=== PATIENT | male | born 1940 | race Two or more races ===

== ENCOUNTER 2019-04-25 11:28 | Emergency (ER) | payer MEDICARE, OTHER ==
[2019-04-25] VITALS (8 sets, daily range): BP systolic 140–180; BP diastolic 72–115
[~2019-04-25] VITALS: Ht 172.7 cm; Wt 93.4 kg
--- NOTE | 2019-04-25 11:53 | NUR ---
ED Nurse Note:pt. 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 is ambulatory with leg prostesis and cane, A/Ox4, VSS, placed on cardia monitor
[2019-04-25] MEDS ORDERED: Vancomycin 1.5 GM in NS 275 ML IV ONE (12:15)
[2019-04-25] MEDS ORDERED: METFORMIN HCL500 M1 ORAL (12:27)
[2019-04-25] MEDS ORDERED: NOVOLOG100 UNIT/4 SQ (12:31)
[2019-04-25] MEDS ORDERED: NIFEDIPINE ER30 M2 ORAL (12:31)
[2019-04-25] MEDS ORDERED: ASPIR 8181 MG ORAL (12:31)
[2019-04-25] MEDS ORDERED: SIMVASTATIN20 MG ORAL (12:31)
[2019-04-25] MEDS ORDERED: LANTUS SOL100 UNIT/1 SUBQ (12:31)
[2019-04-25] MEDS ORDERED: LOSARTAN POTASS50 MG ORAL (12:31)
[2019-04-25] MEDS ORDERED: JANUVIA25 MG ORAL (12:31)
--- NOTE | 2019-04-25 12:37 | Emergency Room Report ---
History of Present Illness General Chief Complaint: Skin Rash/Abscess Source: Patient, Family Member Present Illness HPI 78-year-old male with a history of insulin-dependent diabetes who presents with left foot distal toe infection over the last 6 months. Patient was seen by podiatry 2 months ago and was advised to be seen in emergency room and admitted for IV antibiotics. Patient stated he did not want to come in. He states he has been taking his pain medication but now he is unable to tolerate the pain in his left distal foot. He notes color changes to second and fifth toe. Allergies: Coded Allergies: No Known Allergies (Unverified , 04/25/19) Patient History Past Medical History: DM Nursing Documentation-PMH Past Medical History: No History, Except For Hx Cardiac Problems: No - BKA on RLE Hx Hypertension: Yes Hx Pacemaker: No Hx Asthma: No Hx COPD: No Hx Diabetes: Yes Hx Cancer: No Hx Gastrointestinal Problems: No Hx Dialysis: No History Of Psychiatric Problem: No Hx Neurological Problems: No Hx Cerebrovascular Accident: No Hx Seizures: No Review of Systems Constitutional: Denies: chills, fever Respiratory: Denies: cough, shortness of breath Cardiovascular: Denies: chest pain, palpitations Gastrointestinal: Denies: diarrhea, vomiting Genitourinary: Denies: hematuria, pain Musculoskeletal: Reports: joint pain, joint swelling Skin: Reports: change in color; Denies: rash, lesions Neurological: Denies: headache, dizziness Physical Exam Vital Signs Date Time Temp Pulse Resp B/P (MAP) Pulse Ox O2 Delivery O2 Flow Rate FiO2 04/25/19 11:33 98.1 86 16 138/78 (98) 96 Room Air Sp02 EP Interpretation: reviewed General Appearance: well appearing, no apparent distress, non-toxic Head: normocephalic, atraumatic Eyes: bilateral eye normal inspection ENT: hearing grossly normal, EOM grossly intact, moist mucus membranes Neck: supple Respiratory: lungs clear, normal breath sounds, no respiratory distress, speaking full sentences Cardiovascular #1: regular rate, rhythm, normal capillary refill Cardiovascular #2: 2+ radial (R), 2+ radial (L) Gastrointestinal: soft, non-distended Rectal: deferred Musculoskeletal: moves extm spontaneously, no lower extremity edema Neurologic: grossly normal Psychiatric: mood/affect normal Skin: warm/dry, normal turgor, other - Second digit of left foot necrotic, dry , no drainage. Third digit of left foot erythematous, mildly edematous. Fourth digit stump amputated with yellow mild drainage, fifth phalange/distal digit erythematous edematous tender to palpation discoloration distally, erythema to distal lateral left foot moderate tenderness to palpation on distal metatarsals Medical Decision Making Diagnostic Impression: Primary Impression: Gangrene Additional Impressions: Cellulitis, toe Cellulitis of foot ER Course 70-year-old male history of diabetes who presents to emergency room for gangrenous toes on left foot and erythematous tender to palpation distal left foot. Differential includes dry gangrene, wet gangrene, osteomyelitis, cellulitis, wound infection, fracture Patient will likely need to be admitted for gangrenous. Ordered sepsis profile and covered with broad-spectrum antibiotics. 14:30 -discussed case with -patient accepted for transfer for foot cellulitis, and toe gangrene. Laboratory Tests Test 04/25/19 12:28 04/25/19 14:25 White Blood Count 10.9 K/UL (4.8-10.8) H Red Blood Count 4.22 M/UL (4.70-6.10) L Hemoglobin 11.6 G/DL (14.2-18.0) L Hematocrit 36.1 % (42.0-52.0) L Mean Corpuscular Volume 85 FL (80-99) Mean Corpuscular Hemoglobin 27.4 PG (27.0-31.0) Mean Corpuscular Hemoglobin Concent 32.1 G/DL (32.0-36.0) Red Cell Distribution Width 12.4 % (11.6-14.8) Platelet Count 430 K/UL (150-450) Mean Platelet Volume 5.8 FL (6.5-10.1) L Neutrophils (%) (Auto) 59.1 % (45.0-75.0) Lymphocytes (%) (Auto) 29.3 % (20.0-45.0) Monocytes (%) (Auto) 8.5 % (1.0-10.0) Eosinophils (%) (Auto) 2.5 % (0.0-3.0) Basophils (%) (Auto) 0.6 % (0.0-2.0) Sodium Level 136 MMOL/L (136-145) Potassium Level 3.8 MMOL/L (3.5-5.1) Chloride Level 102 MMOL/L (98-107) Carbon Dioxide Level 25 MMOL/L (21-32) Anion Gap 9 mmol/L (5-15) Blood Urea Nitrogen 23 mg/dL (7-18) H Creatinine 1.4 MG/DL (0.55-1.30) H Estimate Glomerular Filtration Rate mL/min (>60) Glucose Level 209 MG/DL (74-106) H Lactic Acid Level 1.30 mmol/L (0.4-2.0) Calcium Level 8.4 MG/DL (8.5-10.1) L Total Bilirubin 0.3 MG/DL (0.2-1.0) Aspartate Amino Transferase (AST) 26 U/L (15-37) Alanine Aminotransferase (ALT) 28 U/L (12-78) Alkaline Phosphatase 106 U/L (46-116) Total Creatine Kinase 49 U/L (26-308) Creatine Kinase MB < 0.5 NG/ML (0.0-3.6) Creatine Kinase MB Relative Index 1.0 Troponin I 0.000 ng/mL (0.000-0.056) Total Protein 7.4 G/DL (6.4-8.2) Albumin 2.7 G/DL (3.4-5.0) L Globulin 4.7 g/dL Albumin/Globulin Ratio 0.6 (1.0-2.7) L Urine Color Pending Urine Appearance Pending Urine pH Pending Urine Specific Damar Pending Urine Protein Pending Urine Glucose (UA) Pending Urine Ketones Pending Urine Blood Pending Urine Nitrite Pending Urine Bilirubin Pending Urine Urobilinogen Pending Urine Leukocyte Esterase Pending Lab Results Impression Elevated WBC, mild elevated BUN/creatinine, mild elevated glucose. Negative troponin, lactic acid 1.30 Last Vital Signs Date Time Temp Pulse Resp B/P (MAP) Pulse Ox O2 Delivery O2 Flow Rate FiO2 04/25/19 11:55 98.1 82 16 142/82 96 Room Air Disposition: XFER S[facility]M HOSP Condition: Serious Referrals: NON PHYSICIAN (PCP) Dez Rosenthal M.D. Apr 25, 2019 12:37
[2019-04-25 13:05] LABS: BASOPHILS % (AUTO) 0.6 % (0.0-2.0); EOSINOPHILS % (AUTO) 2.5 % (0.0-3.0); HEMATOCRIT 36.1 % (42.0-52.0); HEMOGLOBIN 11.6 G/DL (14.2-18.0); LYMPHOCYTES % (AUTO) 29.3 % (20.0-45.0); MEAN CORPUSCULAR VOLUME 85 FL (80-99); MONOCYTES % (AUTO) 8.5 % (1.0-10.0); NEUTROPHILS % (AUTO) 59.1 % (45.0-75.0); PLATELET COUNT 430 K/UL (150-450); RED BLOOD COUNT 4.22 M/UL (4.70-6.10); RED CELL DISTRIBUTION WIDTH 12.4 % (11.6-14.8); WHITE BLOOD COUNT 10.9 K/UL (4.8-10.8)
--- NOTE | 2019-04-25 13:10 | NUR ---
ED Nurse Note: xray at bedside
[2019-04-25 13:11] LABS: ANION GAP 9 mmol/L (5-15); BLOOD UREA NITROGEN 23 mg/dL (7-18); CALCIUM 8.4 MG/DL (8.5-10.1); CARBON DIOXIDE 25 MMOL/L (21-32); CHLORIDE 102 MMOL/L (98-107); CREATININE 1.4 MG/DL (0.55-1.30); POTASSIUM 3.8 MMOL/L (3.5-5.1); SODIUM 136 MMOL/L (136-145)
[2019-04-25 13:25] LABS: ALANINE AMINOTRANSFERASE 28 U/L (12-78); ALBUMIN 2.7 G/DL (3.4-5.0); ALBUMIN/GLOBULIN RATIO 0.6 (1.0-2.7); ALKALINE PHOSPHATASE 106 U/L (46-116); ASPARTATE AMINO TRANSFERASE 26 U/L (15-37); BILIRUBIN,TOTAL 0.3 MG/DL (0.2-1.0); CKMB < 0.5 NG/ML (0.0-3.6); CREATINE KINASE 49 U/L (26-308)
--- NOTE | 2019-04-25 13:30 | NUR ---
ED Nurse Note: Ultrasound at bedside
[2019-04-25 14:45] LABS: APPEARANCE,URINE CLEAR; BILIRUBIN, URINE NEGATIVE (NEGATIVE); GLUCOSE, URINE (UA) NEGATIVE (NEGATIVE); KETONES,URINE NEGATIVE (NEGATIVE); LEUKOCYTE ESTERASE ,URINE NEGATIVE (NEGATIVE); NITRITE,URINE NEGATIVE (NEGATIVE); PH,URINE 5 (4.5-8.0); PROTEIN,URINE 3+ (NEGATIVE); UROBILINOGEN,URINE NORMAL MG/DL (0.0-1.0)
[2019-04-25] MEDS ORDERED: Piperacillin/Tazobactam 2.25 GM in NS 110 ML IVPB ONE (14:45)
[2019-04-25 14:55] LABS: COLOR,URINE YELLOW
--- NOTE | 2019-04-25 16:35 | NUR ---
ED Nurse Note: Report given to KEATON Cole at [facility].
--- NOTE | 2019-04-25 17:20 | NUR ---
ED Nurse Note:pt. was picked up by ambulance for transfer to [facility]
--- NOTE | 2019-04-26 13:05 | Diagnostic Imaging Report ---
Indication: Foot pain Comparison: None Findings: 3 views of the left foot were obtained. Amputations of the second distal phalange and part of the fourth distal phalange noted. No fracture or obvious erosion or periostitis identified. No soft tissue air seen. Extensive small vessel arterial calcifications are noted. IMPRESSION: No plain film evidence for acute osteomyelitis. Consider further evaluation with MRI as warranted clinically.
--- NOTE | 2019-04-26 13:06 | Diagnostic Imaging Report ---
Indication: Dyspnea Comparison: None A single view chest radiograph was obtained. Findings: No definite infiltrate or pulmonary vascular congestion identified. The heart is enlarged. The aorta is mildly enlarged consistent with atherosclerotic vascular disease. The bones are osteopenic. Impression: No acute disease
--- NOTE | 2019-04-26 15:50 | Diagnostic Imaging Report ---
Indication: Left Leg pain and swelling. Right BKA Technique: Grayscale and duplex Doppler imaging of the arteries in the left lower extremity was performed in real time from the common femoral artery to trifurcation arteries in an emergency setting. No ABIs obtained. Comparison: None Findings: Duplex Doppler interrogation of the veins in left lower extremity was performed from the common femoral vein to the popliteal vein. Triphasic and monophasic waveforms within widely patent left common femoral artery, superficial femoral artery and popliteal artery demonstrated. Triphasic arteries including the anterior, posterior tibial arteries and the peroneal artery show monophasic waveforms without visualized stenosis. IMPRESSION: No evidence of arterial occlusive disease identified in the left lower extremity.
== END 2019-04-25 17:20 | disposition short-term general hospital (02) ==
LOC: EMR 12:10
DX: I96 Gangrene, not elsewhere classified (principal); L03.032 Cellulitis of left toe; L03.116 Cellulitis of left lower limb; E11.9 Type 2 diabetes mellitus without complications; Z79.4 Long term (current) use of insulin; I10 Essential (primary) hypertension; Z89.511 Acquired absence of right leg below knee
CPT/HCPCS: 36415; 71045; 73630; 80053; 81003; 82550; 82553; 83605; 84484; 85025; 87040; 93005; 93926; 96365; 96366; 96367; 99284; J2543; J3370; J7050